=== PATIENT | female | born 1955 | race Caucasian/White ===

== ENCOUNTER → 2017-05-31 | Outpatient (CLI) | payer SELFPAY ==
--- NOTE | 2017-05-31 10:39 | CT ---
CT Calcium Score Clinical information: 61-year-old female for coronary artery disease risk assessment. Comparison: None. ECG Gating: Prospective Scan range: Pulmonary artery bifurcation to diaphragm. Findings: Examination quality: Good. Limitation: None. Total calcium score: 40 Total volume score: 48 mm3 Percentile: 50-75 % Artery scores Left main coronary artery: 0 Left anterior descending artery: 32 Left circumflex artery: 0 Right coronary artery: 8 Other findings: Cardiac chambers: Unremarkable. Cardiac valves: Significant atherosclerotic calcification of the aortic annulus. Thoracic aorta: Unremarkable. Lungs: Unremarkable. Upper abdomen: Unremarkable. Impression: Total calcium score 40 that corresponds with mild definite plaque burden. Mild risk of future burkett ry event within the next 5 years. Reported By:
== END ==
LOC: RAD 09:32
PROVIDERS: ATTEND Internal Medicine
DX: Z13.6 Encounter for screening for cardiovascular disorders (principal)

== ENCOUNTER 2017-09-21 10:27 | Observation (INO) | payer BC ==
[2017-09-21 13:11] LABS: BASOPHILS % (AUTO) 0.6 % (0.2-1.0); EOSINOPHILS # (AUTO) 0.1 x10^3/uL (0.0-0.2); HEMATOCRIT 31.3 % (36.0-47.0); HEMOGLOBIN 10.6 g/dL (12.0-16.0); LYMPHOCYTES # (AUTO) 1.5 X10^3/uL (1.3-2.9); LYMPHOCYTES % (AUTO) 16.2 % (21.0-51.0); MEAN CORPUSCULAR HEMOGLOBIN 28.5 pg (27.0-34.0); MEAN CORPUSCULAR HGB CONC 33.7 g/dL (33.0-35.0); MEAN CORPUSCULAR VOLUME 84.6 fL (80.0-100.0); MEAN PLATELET VOLUME 9.7 fL (7.4-11.0); MONOCYTES # (AUTO) 0.9 x10^3/uL (0.3-0.8); MONOCYTES % (AUTO) 9.5 % (0.0-13.0); NEUTROPHILS # (AUTO) 6.5 x10^3/uL (2.2-4.8); NEUTROPHILS % (AUTO) 72.7 % (42.0-75.0); PLATELET COUNT 179 X10^3/uL (150.0-450.0); RED CELL DISTRIBUTION WIDTH 12.9 % (11.6-16.5); WHITE BLOOD COUNT 8.9 X10^3/uL (3.6-10.0)
[2017-09-21 13:15] LABS: BLOOD UREA NITROGEN 13 mg/dL (7-18); CALCIUM 8.6 mg/dL (8.5-10.1); CARBON DIOXIDE 31.5 mmol/L (21-32); CHLORIDE 101 mmol/L (98-107); COR NA(FOR HYPERGLY) 138 mmol/L (136-145); CREATININE 0.78 mg/dL (0.55-1.02); SODIUM 137 mmol/L (136-145); eGFR BLACK RACES > 60 (>60); eGFR NON BLACK RACES > 60 (>60)
[2017-09-21 13:21] VITALS: BMI 37.8
[2017-09-21 13:29] LABS: ALANINE AMINOTRANSFERASE 42 Units/L (12-78); ALBUMIN 3.1 g/dL (3.4-5.0); ALKALINE PHOSPHATASE 116 Units/L (46-116); ASPARTATE AMINO TRANSFERASE 41 Units/L (15-37); COR CA(FOR HYPOALB) 9.3 mg/dL (8.5-10.1); TOTAL PROTEIN 6.7 g/dL (6.4-8.2)
[2017-09-21] MEDS: ZOFRAN INJ 4 MG VIAL IVP PRN (13:34)
[2017-09-21] MEDS: NS 1000 ML 1,000 ML IV SCH (13:44)
--- NOTE | 2017-09-21 15:17 | RAD ---
Examination: Right hip, two views, portable History: Pain, hip replacement Comparison reference: None Findings: Arthroplasty components are present, related anatomically without evidence for displacement , periprosthetic fracture or hardware abnormality. Surgical clips are noted in the overlying soft tis sues. Impression: No significant postoperative complication identified following right JOSELIN. Reported By:
[2017-09-21] MEDS: PERCOCET TAB 5/325 MG PO PRN (18:09)
[2017-09-21] MEDS: ELIQUIS PO SCH (20:38)
[2017-09-21] MEDS ORDERED: APIXABAN PO SCH (21:00)
[2017-09-21] MEDS ORDERED: STERILE WATER IRRIGATION IR ONE (21:41)
[2017-09-21 22:23] LABS: BILIRUBIN,URINE NEGATIVE (NEGATIVE); BLOOD/HEMOGLOBIN,URINE NEGATIVE (NEGATIVE); GLUCOSE, URINE NEGATIVE (NEGATIVE); KETONES,URINE NEGATIVE (NEGATIVE); LEUKOCYTE ESTERASE ,URINE NEGATIVE (NEGATIVE); NITRITES,URINE NEGATIVE (NEGATIVE); PROTEIN,URINE NEGATIVE (NEGATIVE); UROBILINOGEN,URINE 1+ (NORMAL)
[2017-09-21 22:40] LABS: APPEARANCE,URINE CLEAR (CLEAR); BACTERIA,URINE TRACE /HPF (NEGATIVE); COLOR,URINE YELLOW (YELLOW); RBC,URINE NONE SEEN /HPF (NEGATIVE); SQUAMOUS EPITHELIAL CELL,UR FEW /HPF (NEGATIVE)
[2017-09-22] MEDS: PERCOCET TAB 5/325 MG PO PRN ×3 (01:49→20:14)
[2017-09-22 06:08] LABS: BASOPHILS % (AUTO) 0.5 % (0.2-1.0); EOSINOPHILS # (AUTO) 0.2 x10^3/uL (0.0-0.2); EOSINOPHILS % (AUTO) 3.1 % (0.9-2.9); HEMATOCRIT 29.9 % (36.0-47.0); HEMOGLOBIN 10.1 g/dL (12.0-16.0); LYMPHOCYTES % (AUTO) 24.7 % (21.0-51.0); MEAN CORPUSCULAR HEMOGLOBIN 28.5 pg (27.0-34.0); MEAN CORPUSCULAR HGB CONC 33.9 g/dL (33.0-35.0); MEAN CORPUSCULAR VOLUME 84.2 fL (80.0-100.0); MEAN PLATELET VOLUME 9.7 fL (7.4-11.0); MONOCYTES # (AUTO) 0.9 x10^3/uL (0.3-0.8); MONOCYTES % (AUTO) 10.7 % (0.0-13.0); NEUTROPHILS # (AUTO) 4.9 x10^3/uL (2.2-4.8); PLATELET COUNT 193 X10^3/uL (150.0-450.0); RED BLOOD COUNT 3.56 X10^6/uL (3.5-5.4); RED CELL DISTRIBUTION WIDTH 13.3 % (11.6-16.5)
[2017-09-22 06:20] LABS: ALANINE AMINOTRANSFERASE 39 Units/L (12-78); ALBUMIN 2.6 g/dL (3.4-5.0); ALKALINE PHOSPHATASE 112 Units/L (46-116); ASPARTATE AMINO TRANSFERASE 35 Units/L (15-37); BLOOD UREA NITROGEN 11 mg/dL (7-18); CALCIUM 8.1 mg/dL (8.5-10.1); CARBON DIOXIDE 29.6 mmol/L (21-32); CHLORIDE 103 mmol/L (98-107); COR CA(FOR HYPOALB) 9.2 mg/dL (8.5-10.1); CREATININE 0.73 mg/dL (0.55-1.02); SODIUM 139 mmol/L (136-145); TOTAL PROTEIN 6.3 g/dL (6.4-8.2); eGFR BLACK RACES > 60 (>60); eGFR NON BLACK RACES > 60 (>60)
[2017-09-22] MEDS: ZOFRAN INJ 4 MG VIAL IVP PRN (08:01)
[2017-09-22] MEDS: ELIQUIS PO SCH ×2 (10:31→20:15)
[2017-09-22] MEDS: COLACE CAP 100 MG PO SCH (10:31)
[2017-09-22] MEDS: DEMEROL INJ IVP PRN ×2 (10:32→16:08)
[2017-09-23] MEDS: PERCOCET TAB 5/325 MG PO PRN ×4 (02:08→20:44)
[2017-09-23 04:26] LABS: BLOOD UREA NITROGEN 10 mg/dL (7-18); CALCIUM 8.6 mg/dL (8.5-10.1); CARBON DIOXIDE 32.4 mmol/L (21-32); CHLORIDE 101 mmol/L (98-107); COR NA(FOR HYPERGLY) 140 mmol/L (136-145); CREATININE 0.75 mg/dL (0.55-1.02); SODIUM 139 mmol/L (136-145); eGFR BLACK RACES > 60 (>60); eGFR NON BLACK RACES > 60 (>60)
[2017-09-23 04:47] LABS: BASOPHILS # (AUTO) 0.1 X10^3/uL (0.0-0.1); BASOPHILS % (AUTO) 0.9 % (0.2-1.0); EOSINOPHILS # (AUTO) 0.3 x10^3/uL (0.0-0.2); EOSINOPHILS % (AUTO) 3.9 % (0.9-2.9); HEMATOCRIT 27.3 % (36.0-47.0); HEMOGLOBIN 9.3 g/dL (12.0-16.0); LYMPHOCYTES # (AUTO) 1.8 X10^3/uL (1.3-2.9); MEAN CORPUSCULAR HEMOGLOBIN 28.8 pg (27.0-34.0); MEAN CORPUSCULAR VOLUME 84.5 fL (80.0-100.0); MEAN PLATELET VOLUME 9.5 fL (7.4-11.0); MONOCYTES # (AUTO) 0.8 x10^3/uL (0.3-0.8); MONOCYTES % (AUTO) 10.4 % (0.0-13.0); NEUTROPHILS # (AUTO) 4.9 x10^3/uL (2.2-4.8); NEUTROPHILS % (AUTO) 61.8 % (42.0-75.0); PLATELET COUNT 225 X10^3/uL (150.0-450.0); RED BLOOD COUNT 3.23 X10^6/uL (3.5-5.4); RED CELL DISTRIBUTION WIDTH 13.1 % (11.6-16.5); WHITE BLOOD COUNT 7.9 X10^3/uL (3.6-10.0)
[2017-09-23 04:59] LABS: ALANINE AMINOTRANSFERASE 45 Units/L (12-78); ALBUMIN 2.5 g/dL (3.4-5.0); ALKALINE PHOSPHATASE 128 Units/L (46-116); ASPARTATE AMINO TRANSFERASE 32 Units/L (15-37); COR CA(FOR HYPOALB) 9.8 mg/dL (8.5-10.1); TOTAL PROTEIN 6.1 g/dL (6.4-8.2)
[2017-09-23] MEDS: COLACE CAP 100 MG PO SCH (08:51)
[2017-09-23] MEDS: ELIQUIS PO SCH ×2 (08:52→20:45)
[2017-09-23] MEDS: ZOFRAN INJ 4 MG VIAL IVP PRN (09:31)
[2017-09-23] MEDS: DEMEROL INJ IVP PRN (16:46)
[2017-09-23] MEDS: NS 1000 ML 1,000 ML IV SCH ×2 (17:25→22:34)
[2017-09-24] MEDS: PERCOCET TAB 5/325 MG PO PRN ×3 (01:22→20:34)
[2017-09-24 05:56] LABS: ALANINE AMINOTRANSFERASE 44 Units/L (12-78); ALBUMIN 2.5 g/dL (3.4-5.0); ALKALINE PHOSPHATASE 133 Units/L (46-116); ASPARTATE AMINO TRANSFERASE 26 Units/L (15-37); BLOOD UREA NITROGEN 10 mg/dL (7-18); CALCIUM 8.6 mg/dL (8.5-10.1); CARBON DIOXIDE 29.6 mmol/L (21-32); CHLORIDE 102 mmol/L (98-107); COR CA(FOR HYPOALB) 9.8 mg/dL (8.5-10.1); CREATININE 0.68 mg/dL (0.55-1.02); SODIUM 139 mmol/L (136-145); TOTAL PROTEIN 6.2 g/dL (6.4-8.2); eGFR BLACK RACES > 60 (>60); eGFR NON BLACK RACES > 60 (>60)
[2017-09-24 06:27] LABS: BASOPHILS # (AUTO) 0.1 X10^3/uL (0.0-0.1); BASOPHILS % (AUTO) 1.3 % (0.2-1.0); EOSINOPHILS # (AUTO) 0.4 x10^3/uL (0.0-0.2); EOSINOPHILS % (AUTO) 5.7 % (0.9-2.9); HEMATOCRIT 28.6 % (36.0-47.0); HEMOGLOBIN 9.8 g/dL (12.0-16.0); LYMPHOCYTES % (AUTO) 27.7 % (21.0-51.0); MEAN CORPUSCULAR HEMOGLOBIN 28.9 pg (27.0-34.0); MEAN CORPUSCULAR HGB CONC 34.2 g/dL (33.0-35.0); MEAN CORPUSCULAR VOLUME 84.5 fL (80.0-100.0); MEAN PLATELET VOLUME 8.9 fL (7.4-11.0); MONOCYTES # (AUTO) 0.8 x10^3/uL (0.3-0.8); NEUTROPHILS # (AUTO) 3.9 x10^3/uL (2.2-4.8); NEUTROPHILS % (AUTO) 54.3 % (42.0-75.0); PLATELET COUNT 250 X10^3/uL (150.0-450.0); RED BLOOD COUNT 3.38 X10^6/uL (3.5-5.4); RED CELL DISTRIBUTION WIDTH 13.2 % (11.6-16.5); WHITE BLOOD COUNT 7.2 X10^3/uL (3.6-10.0)
[2017-09-24] MEDS: COLACE CAP 100 MG PO SCH (09:12)
[2017-09-24] MEDS: ELIQUIS PO SCH ×2 (09:13→20:31)
[2017-09-24] MEDS ORDERED: DULCOLAX SUPPOSITORY 10 MG RECTAL ONE (13:16)
[2017-09-24] MEDS: DEMEROL INJ IVP PRN (15:12)
[2017-09-24] MEDS ORDERED: MILK OF MAGNESIA PO PRN (17:42)
[2017-09-24] MEDS ORDERED: STERILE WATER IRRIGATION IR ONE (21:16)
[2017-09-25] MEDS: NS 1000 ML 1,000 ML IV SCH ×2 (01:02→15:34)
[2017-09-25] MEDS: PERCOCET TAB 5/325 MG PO PRN ×2 (04:20→12:54)
[2017-09-25] MEDS: ZOFRAN INJ 4 MG VIAL IVP PRN (04:21)
[2017-09-25 04:47] LABS: BASOPHILS # (AUTO) 0.1 X10^3/uL (0.0-0.1); BASOPHILS % (AUTO) 1.3 % (0.2-1.0); EOSINOPHILS # (AUTO) 0.3 x10^3/uL (0.0-0.2); EOSINOPHILS % (AUTO) 2.7 % (0.9-2.9); HEMATOCRIT 29.7 % (36.0-47.0); HEMOGLOBIN 10.2 g/dL (12.0-16.0); LYMPHOCYTES # (AUTO) 1.8 X10^3/uL (1.3-2.9); LYMPHOCYTES % (AUTO) 17.4 % (21.0-51.0); MEAN CORPUSCULAR HEMOGLOBIN 28.6 pg (27.0-34.0); MEAN CORPUSCULAR HGB CONC 34.4 g/dL (33.0-35.0); MEAN CORPUSCULAR VOLUME 83.1 fL (80.0-100.0); MEAN PLATELET VOLUME 8.6 fL (7.4-11.0); MONOCYTES # (AUTO) 0.8 x10^3/uL (0.3-0.8); MONOCYTES % (AUTO) 7.5 % (0.0-13.0); NEUTROPHILS # (AUTO) 7.3 x10^3/uL (2.2-4.8); NEUTROPHILS % (AUTO) 71.1 % (42.0-75.0); PLATELET COUNT 313 X10^3/uL (150.0-450.0); RED BLOOD COUNT 3.58 X10^6/uL (3.5-5.4); RED CELL DISTRIBUTION WIDTH 12.7 % (11.6-16.5); WHITE BLOOD COUNT 10.3 X10^3/uL (3.6-10.0)
[2017-09-25 04:59] LABS: ALANINE AMINOTRANSFERASE 51 Units/L (12-78); ALBUMIN 2.7 g/dL (3.4-5.0); ALKALINE PHOSPHATASE 154 Units/L (46-116); ASPARTATE AMINO TRANSFERASE 30 Units/L (15-37); BLOOD UREA NITROGEN 10 mg/dL (7-18); CARBON DIOXIDE 30.8 mmol/L (21-32); CHLORIDE 100 mmol/L (98-107); CREATININE 0.66 mg/dL (0.55-1.02); SODIUM 137 mmol/L (136-145); TOTAL PROTEIN 6.6 g/dL (6.4-8.2); eGFR BLACK RACES > 60 (>60); eGFR NON BLACK RACES > 60 (>60)
[2017-09-25] MEDS: COLACE CAP 100 MG PO SCH (09:00)
[2017-09-25] MEDS: ELIQUIS PO SCH (09:00)
[2017-09-25 12:22] VITALS: BP 129/66
== END 2017-09-25 16:00 | disposition home or self-care (01) ==
LOC: MED/SURG 10:27
PROVIDERS: ADMIT Internal Medicine; ATTEND Internal Medicine
DX: G89.18 Other acute postprocedural pain (principal); M79.7 Fibromyalgia; M06.9 Rheumatoid arthritis, unspecified; Z79.891 Long term (current) use of opiate analgesic; R53.1 Weakness; Z74.09 Other reduced mobility; Z96.641 Presence of right artificial hip joint
CPT/HCPCS: 36415; 73501; 80053; 81001; 85025; 85610; 85730; 94640; 99218; A4217; A4222; G0378; J2175; J2405